=== PATIENT | female | born 1940 | race Caucasian/White ===

== ENCOUNTER → 2017-05-03 | Outpatient (CLI) | payer MEDICARE ==
[~2017-05-03] MED LIST: ASPIRIN EC81 MG PO; ATENOLOL25 MG PO; ATENOLOL50 MG PO; COUMADIN5 MG PO; LEVOTHYROXINE100 MC1; LEVOTHYROXINE100 MCG PO; MECLIZINE HCL12.5 MG PO; PANTOPRAZOLE SO40 MG PO; PRAVASTATIN SOD20 MG PO; WARFARIN SODIUM4 MG PO
--- NOTE | 2017-05-03 15:10 | Diagnostic Imaging Report ---
PROCEDURE: X-RAY CHEST, TWO VIEWS COMPARISON: Chest x-ray 09/30/15. INDICATIONS: COUGH FINDINGS: LUNGS: Stable flattening of the diaphragms. There is no evidence of mass or infiltrate. The pulmonary veins are mildly prominent. PLEURA: No effusions or pneumothorax. HEART \T\ MEDIASTINUM: Stable cardiomegaly and loop recorder. No hilar lymphadenopathy. Aortic ectasia is stable. BONES \T\ SOFT TISSUES: No focal osseous lesions. Soft tissues are unremarkable. CONCLUSION: Stable cardiomegaly and pulmonary venous hypertension. Stable pulmonary hyperinflation suggestive of small airways disease. No acute cardiopulmonary process. Dictated by: Izzy Muller M.D. on 05/03/2017 at 15:18 Electronically approved by: Izzy Muller M.D. on 05/03/2017 at 15:18
== END ==
LOC: RAD 14:18
PROVIDERS: ATTEND Family Medicine
DX: R05 Cough (principal)
CPT/HCPCS: 71020

== ENCOUNTER → 2018-07-12 | Outpatient (CLI) | payer MEDICARE ==
--- NOTE | 2018-07-12 12:30 | Diagnostic Imaging Report ---
EXAM: Lumbar spine radiographs-5 views INDICATION: Lumbago with sciatica, left side. COMPARISON: None FINDINGS: BONES: There is mild anterolisthesis of L4 on L5 and mild retrolisthesis of L3 on L4. No acute displaced fractures. Vertebral body heights are preserved. DISCS: There are mild degenerative disc changes, most pronounced in the lower lumbar spine. JOINTS: Moderate facet degenerative changes, most pronounced in the lower lumbar spine. Likely multilevel mild bony neural foraminal stenosis, extending from the L2-L5 levels. OTHER: Atherosclerotic vascular calcifications. IMPRESSION: Mild degenerative disc and moderate facet degenerative changes. Likely multilevel mild bony neural foraminal stenosis, extending from the L2-L5 levels. Signed by: Dr. Ashley Cedillo MD on 07/12/2018 12:27 PM
--- NOTE | 2018-07-12 12:31 | Diagnostic Imaging Report ---
Exam: Left hip radiographs-2 views History: Low back pain with radiation to the left hip. Comparison: None. Findings: No evidence of acute fracture, malalignment, or soft tissue abnormality. There are mild degenerative changes in the left hip. Impression: No acute radiographic abnormality. Mild left hip osteoarthritis. Signed by: Dr. Ashley Cedillo MD on 07/12/2018 12:28 PM
== END ==
LOC: RAD 11:31
PROVIDERS: ATTEND Family Medicine
DX: M54.42 Lumbago with sciatica, left side (principal)
CPT/HCPCS: 72110

== ENCOUNTER → 2019-01-10 | Day surgery (SDC) | payer MEDICARE ==
[~2019-01-10] VITALS: Ht 165.1 cm; Wt 76.7 kg
[~2019-01-10] MED LIST changes: +FENTANYL CITRATE/PF 100MCG/2 ML INJ ONE; +LIDOCAINE HCL 2% LOCAL 20 ML VIAL ONE; +METOPROLOL SUCC50 MG PO; +MIDAZOLAM HCL 2 MG/2 ML VIAL ONE; +MYRBETRIQ25 MG; +SODIUM CHLORIDE 0.9% 500ML 500 ML ONE
--- OUTSIDE RECORDS SUMMARY | 2019-01-10 10:33 | XMS REPORT ---
[facility] Address Unknown Phone Unavailable Care Team Providers Care Senior Planning Manager Name Role Phone SANA CATALAN Unavailable Unavailable Payers Payer Name Policy Type Policy Number Effective Date Expiration Date Problems This patient has no known problems. Allergies, Adverse Reactions, Alerts Allergy Name Allergy Type Status Severity Reaction(s) Onset Date Inactive Date Treating Clinician Comments meperidine HCl DA Active U 2017-11-15 00:00:00 Penicillins DA Active U 2017-11-15 00:00:00 Medications This patient has no known medications. Results Test Description Test Time Test Comments Text Results Atomic Results Result Comments HIP LEFT 2-3 VW (+/- PELVIS) 2018-07-12 12:27:00 [place] [address] Patient Name: JUMANA MORA MR #: [id number] : 1940 Age/Sex: 77/F Req #: [id number] Adm Physician: Ordered by: SANA CATALAN MD Report #: [id number] Location: [facility] Room/Bed: Procedure: [id number] DX/HIP LEFT 2-3 VW (+/- PELVIS) Exam Date: Exam Time: REPORT STATUS: Signed Exam: Left hip radiographs-2 views History: Low back pain with radiation to the left hip. Comparison: None. Findings: No evidence of acute fracture, malalignment, or soft tissue abnormality. There are mild degenerative changes in the left hip. Impression: No acute radiographic abnormality. Mild left hip osteoarthritis. Signed by: Dr. Romina Romo MD on 07/12/2018 12:28 PM Dictated By: ROMINA ROMO MD 1228 Transcribed By: JIM on 07/12/18 1228 COPY TO: SANA CATALAN MD SP LUMBAR, COMPLETE MIN 4VW 2018-07-12 12:23:00 [place] [address] Patient Name: JUMANA MORA MR #: [id number] : 1940 Age/Sex: 77/F Req #: [id number] Adm Physician: Ordered by: SANA CATALAN MD Report #: [id number] Location: [facility] Room/Bed: Procedure: [id number] DX/SP LUMBAR, COMPLETE MIN 4VW Exam Date: 07/12/18 Exam Time: 1145 REPORT STATUS: Signed EXAM: Lumbar spine radiographs-5 views IND ICATION: Lumbago with sciatica, left side. COMPARISON: None FINDINGS: BONES: There is mild anterolisthesis of L4 on L5 and mild retrolisthesis of L3 on L4. No acute displaced fractures. Vertebral body heights are preserved. DISCS: There are mild degenerative disc changes, most pronounced in the lower lumbar spine. JOINTS: Moderate facet degenerative changes, most pronounced in the lower lumbar spine. Likely multilevel mild bony neural foraminal stenosis, extending from the L2-L5 levels. OTHER: Atherosclerotic vascular calcifications. IMPRESSION: Mild degenerative disc and moderate facet degenerative changes. Likely multilevel mild bony neural foraminal stenosis, extending from the L2-L5 levels. Signed by: Dr. Romina Romo MD on 07/12/2018 12:27 PM Dictated By: ROMINA ROMO MD 26 Transcribed By: JIM on 07/12/187 COPY TO: SANA CATALAN MD CHEST 2 VIEWS [place] [address] Patient Name: JUMANA MORA MR #: [id number] : 1940 Age/Sex: 76/F Req #: [id number] Adm Physician: Ordered by: SANA CATALAN MD Report #: [id number] Location: [facility] Room/Bed: Procedure: [id number] DX/CHEST 2 VIEWS Exam Date: 05/03/17 Exam Time: 1445 REPORT STATUS: Signed PROCEDURE: X-RAY CHEST, TWO VIEWS COMPARISON: Chest x-ray 09/30/15. INDICATIONS: COUGH FINDINGS: LUNGS: Stable flattening of the diaphragms. There is no evidence of mass or infiltrate. The pulmonary veins are mildly prominent. PLEURA: No effusions or pneumothorax. HEART T MEDIASTINUM: Stable cardiomegaly and loop recorder. No hilar lymphadenopathy. Aortic ectasia is stable. BONES T SOFT TISSUES: No focal osseous lesions. Soft tissues are unremarkable. CONCLUSION: Stable cardiomegaly and pulmonary venous hypertension. Stable pulmonary hyperinflation suggestive of small airways disease. No acute cardiopulmonary process. Dictated by: Ysabel Muller M.D. on 05/03/2017 at 15:18 Electronically approved by: Ysabel Muller M.D. on 05/03/2017 at 15:18 Dictated By: YSABEL MULLER MD Transcribed By: GLORIA on 05/03/178 COPY TO: SANA CATALAN MD KNEE RIGHT THREE VIEWS [place] [address] Patient Name: JUMANA MORA MR #: [id number] : 1940 Age/Sex: 76/F Req #: [id number] Adm Physician: Ordered by: SANA CATALAN MD Report #: [id number] Location: [facility] Room/Bed: Procedure: [id number] DX/KNEE RIGHT THREE VIEWS Exam Date: 02/28/17 Exam Time: 1020 REPORT STATUS: Signed PROCEDURE: KNEE RIGHT THREE VIEWS COMPARISON: None. INDICATIONS: PATELLER TENDONITIS RIGHT KNEE FINDINGS: There are no fractures, dislocations, lytic or blastic lesions. The bones are well-mineralized. The soft-tissues are unremarkable. CONCLUSION: No acute radiographic abnormality. Dictated by: Hamida Redd M.D. on 02/28/2017 at 11:24 Electronically approved by: Hamida Redd M.D. on 02/28/2017 at 11:24 Dictated By: HAMIDA REDD MD Transcribed By: GLORIA on 02/28/17 1124 COPY TO: SANA CATALAN MD
[2019-01-10 11:00] VITALS: BP 166/74
[2019-01-10 14:53] VITALS: BP 112/51
[2019-01-10 15:00] VITALS: BP 119/53
[2019-01-10 15:15] VITALS: BP 105/58
[2019-01-10 15:30] VITALS: BP 114/62
--- NOTE | 2019-01-10 15:40 | NUR ---
Patient ambulated to restroom with standby assistance and void without difficulty. Assisted patient with getting dressed. IV to right hand removed and dressing placed per protocol. Dressing to right hand is clean,dry, and intact. Dressing to right upper chest is clean,dry, and intact. Patient and patient's provided copies of discharge instructions, medication reconciliation, prescription, and Minocycline handout. 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 Patient discharged with belongings. No distress noted at time of discharge.
--- NOTE | 2019-01-11 17:00 | Operative Report ---
DATE OF PROCEDURE: 01/10/2019 SURGEON: Moody Gonzalez MD INDICATIONS: ILR at end of life. PROCEDURE PERFORMED: Explant of implantable loop recorder. COMPLICATIONS: None. BLOOD LOSS: Minimal. RECOMMENDATIONS: Monitor wound healing. DESCRIPTION OF PROCEDURE: Left anterior chest wall was anesthetized using subcutaneous lidocaine. A skin incision was made. The ILR was identified. Capsule was incised. ILR was explanted. Subcutaneous tissue approximated using 4-0 Vicryl. Skin approximated using Dermabond. The patient discharged home same day. Moody Gonzalez MD KSB/MODL /[id number]
== END | disposition home or self-care (01) ==
LOC: CATH LAB 10:25
PROVIDERS: ATTEND Internal Medicine Interventional Cardiology
DX: Z45.09 Encounter for adjustment and management of other cardiac device (principal); I48.91 Unspecified atrial fibrillation; I25.10 Atherosclerotic heart disease of native coronary artery without angina pectoris; Z79.01 Long term (current) use of anticoagulants; Z79.82 Long term (current) use of aspirin
CPT/HCPCS: 33286; J2001; J2250; J3010; J7040

== ENCOUNTER → 2020-03-23 | Day surgery (SDC) | payer MEDICARE ==
[2020-03-19 11:16] LABS: BASOPHILS % 0.5 % (0.0-1.0); EOSINOPHILS # (AUTO) 0.4 (0.0-0.4); EOSINOPHILS % 5.1 % (0.0-6.0); HEMATOCRIT 42.7 % (34.2-44.1); MEAN CORPUSCULAR HEMOGLOBIN 31.5 pg (28-32); MEAN CORPUSCULAR HGB CONC 32.8 g/dL (31-35); MEAN CORPUSCULAR VOLUME 96.2 fL (81-99); MONOCYTES # (AUTO) 0.5 (0.2-0.8); MONOCYTES % 6.8 % (4.4-11.3); NEUTROPHILS # (AUTO) 4.5 (2.1-6.9); NEUTROPHILS % 60.2 % (38.7-80.0); PLATELET COUNT 209 x10e3/uL (140-360); RED BLOOD COUNT 4.44 x10e6/uL (3.6-5.1); RED CELL DISTRIBUTION WIDTH 12.6 % (11.7-14.4)
[~2020-03-23] MED LIST changes: +HYOSCYAMINE 0.125 MG TAB ONE; -LIDOCAINE HCL 2% LOCAL 20 ML VIAL ONE; +LIDOCAINE HCL 2% LOCAL INJ 5 ML SDV VIAL INJ ONE; -MIDAZOLAM HCL 2 MG/2 ML VIAL ONE; -SODIUM CHLORIDE 0.9% 500ML 500 ML ONE
[2020-03-23 14:40] VITALS: BP 115/89
--- NOTE | 2020-03-23 15:18 | Operative Report ---
DATE OF PROCEDURE: 03/23/2020 SURGEON: Indio Bee MD PROCEDURES: EGD with biopsies and colonoscopy with polypectomy. ADDITIONAL REFERRING PHYSICIAN: Moody Gonzalez MD. INDICATIONS FOR EGD: History of melena. INDICATIONS FOR COLONOSCOPY: Colorectal cancer screening. MEDICATIONS: The patient was done under MAC, please see anesthesiologist's note. PROCEDURE IN DETAIL: With the patient in the left lateral decubitus position, a flexible fiberoptic Olympus gastroscope was introduced into the esophagus under direct visualization without any difficulty. There was some erythema noted in distal esophagus. There was a moderate-sized sliding hiatal hernia and was traversed with ease. There was some focal nodularity in the hiatal hernia sac and that was biopsied. The scope was then advanced with ease into the stomach. Mucosa overlying the antrum and the body revealed some patchy erythema and [id number] edema, and biopsies were obtained from the antrum of the body. The pylorus was of normal contour and shape, was intubated with ease and the scope was advanced all the way to the second portion of the duodenum. The scope was then withdrawn slowly. Mucosa overlying the proximal second portion and the duodenal bulb appeared to be within normal limits. The scope was then withdrawn back into the stomach and retroflexed, mucosa overlying the fundus and the cardia appeared to be within normal limits. The scope was then straightened out, it was subsequently withdrawn, and the patient tolerated the procedure well. IMPRESSION: 1. Distal esophagitis. 2. Moderate-sized sliding hiatal hernia. 3. Focal nodularity, hiatal hernia sac, biopsied. 4. Gastritis, biopsied, biopsies sent to stain for Helicobacter pylori. PLAN: Follow up histology. Initiate Protonix 40 mg one p.o. q.a.m. before meals. The patient might benefit from a repeat EGD in 2 to 3 months upon treatment to re-evaluate the aforementioned prominent nodularity in the hiatal hernia sac. The patient was then turned around and after adequate lubrication of the anal canal, a flexible fiberoptic Olympus colonoscope was inserted into the rectum with ease and advanced all the way to the cecum. It was then withdrawn slowly. Mucosa overlying the cecum, ascending colon, and transverse colon appeared to be within normal limits. One polyp was hot snared from the proximal descending colon. A single diverticulum was noted in the sigmoid colon. One polyp was cold biopsied from the sigmoid colon. The rectum appeared to be within normal limits. The scope was then retroflexed into the distal rectum and small internal hemorrhoids were noted, none of which was actively bleeding. The scope was then straightened out, it was subsequently withdrawn, and the patient tolerated the procedure well. IMPRESSION: 1. Descending colon polyp, hot snared. 2. Diverticulosis, sigmoid colon, minimal. 3. Sigmoid colon polyp, cold biopsied. 4. Internal hemorrhoids, none actively bleeding. PLAN: Follow up histology. Initiate high-fiber, low-fat diet. Initiate high-fiber supplement. The patient might benefit from a followup colonoscopy in 3 years. Findings do not necessarily explain the patient's melena. We will proceed with small bowel series and if negative and the melena recurs, then the patient will need a capsule endoscopy. MD CÉSAR Butts/JESUSITAL /[id number] cc: MD Trev Jiménez MD
== END | disposition home or self-care (01) ==
LOC: OR 11:50
PROVIDERS: ATTEND Internal Medicine Gastroenterology
DX: K29.50 Unspecified chronic gastritis without bleeding (principal); K63.5 Polyp of colon; K20.90 Esophagitis, unspecified without bleeding; K44.9 Diaphragmatic hernia without obstruction or gangrene; K31.89 Other diseases of stomach and duodenum; K57.30 Diverticulosis of large intestine without perforation or abscess without bleeding; K59.09 Other constipation; K64.8 Other hemorrhoids; E03.9 Hypothyroidism, unspecified; I48.91 Unspecified atrial fibrillation; I25.10 Atherosclerotic heart disease of native coronary artery without angina pectoris; I25.2 Old myocardial infarction; Z88.6 Allergy status to analgesic agent; Z88.0 Allergy status to penicillin; Z01.810 Encounter for preprocedural cardiovascular examination; Z01.812 Encounter for preprocedural laboratory examination; Z20.828 Contact with and (suspected) exposure to other viral communicable diseases; Z79.01 Long term (current) use of anticoagulants; Z98.61 Coronary angioplasty status; Z68.27 Body mass index [BMI] 27.0-27.9, adult
CPT/HCPCS: 36415; 43239; 45380; 45385; 85025; 93005; J2001; J3010; U0002; 45378; 45384

== ENCOUNTER → 2020-04-09 | Outpatient (CLI) | payer MEDICARE ==
[~2020-04-09] MED LIST changes: -FENTANYL CITRATE/PF 100MCG/2 ML INJ ONE; -HYOSCYAMINE 0.125 MG TAB ONE; -LIDOCAINE HCL 2% LOCAL INJ 5 ML SDV VIAL INJ ONE
== END ==
LOC: DX 15:33
PROVIDERS: ATTEND Internal Medicine Gastroenterology
DX: Z01.812 Encounter for preprocedural laboratory examination (principal); Z20.828 Contact with and (suspected) exposure to other viral communicable diseases; K92.1 Melena; K31.89 Other diseases of stomach and duodenum
CPT/HCPCS: U0002

== ENCOUNTER → 2020-06-21 | Day surgery (SDC) | payer MEDICARE ==
[2020-06-17 10:43] LABS: BASOPHILS % 0.4 % (0.0-1.0); EOSINOPHILS # (AUTO) 0.5 (0.0-0.4); EOSINOPHILS % 7.2 % (0.0-6.0); HEMATOCRIT 41.7 % (34.2-44.1); HEMOGLOBIN 13.7 g/dL (12.0-16.0); LYMPHOCYTES # (AUTO) 2.2 (1.0-3.2); LYMPHOCYTES % 30.3 % (18.0-39.1); MEAN CORPUSCULAR HEMOGLOBIN 31.3 pg (28-32); MEAN CORPUSCULAR HGB CONC 32.9 g/dL (31-35); MEAN CORPUSCULAR VOLUME 95.2 fL (81-99); MONOCYTES # (AUTO) 0.6 (0.2-0.8); MONOCYTES % 8.2 % (4.4-11.3); NEUTROPHILS # (AUTO) 3.8 (2.1-6.9); NEUTROPHILS % 53.6 % (38.7-80.0); PLATELET COUNT 206 x10e3/uL (140-360); RED BLOOD COUNT 4.38 x10e6/uL (3.6-5.1); RED CELL DISTRIBUTION WIDTH 12.8 % (11.7-14.4)
[~2020-06-21] MED LIST changes: +LIDOCAINE HCL 2% LOCAL INJ 5 ML SDV VIAL INJ ONE; +PROPOFOL IV EMULSION 10 MG/ML 20 ML VIAL ONE; +SIMETHICONE 40 MG/0.6 ML BTL ONE
[2020-06-21 07:40] LABS: INR 0.98; PARTIAL THROMBOPLASTIN TIME 29.6 seconds (23.8-35.5); PROTHROMBIN TIME 13.6 seconds (11.9-14.5)
[2020-06-21 08:45] VITALS: BP 129/63
== END | disposition home or self-care (01) ==
LOC: OR 06:10
PROVIDERS: ATTEND Internal Medicine Gastroenterology
DX: K20.90 Esophagitis, unspecified without bleeding (principal); K29.70 Gastritis, unspecified, without bleeding; K21.9 Gastro-esophageal reflux disease without esophagitis; K44.9 Diaphragmatic hernia without obstruction or gangrene; K31.89 Other diseases of stomach and duodenum; I10 Essential (primary) hypertension; I25.2 Old myocardial infarction; E78.5 Hyperlipidemia, unspecified; Z01.810 Encounter for preprocedural cardiovascular examination; Z01.812 Encounter for preprocedural laboratory examination; Z20.822 Contact with and (suspected) exposure to COVID-19; Z86.010 Personal history of colon polyps; Z68.27 Body mass index [BMI] 27.0-27.9, adult; Z88.0 Allergy status to penicillin; Z88.8 Allergy status to other drugs, medicaments and biological substances
CPT/HCPCS: 36415 ×2; 43239; 85025; 85610; 85730; 93005; J2001; J2704; U0002

== ENCOUNTER → 2021-06-29 | Outpatient (CLI) | payer MEDICARE ==
[~2021-06-29] MED LIST changes: -LIDOCAINE HCL 2% LOCAL INJ 5 ML SDV VIAL INJ ONE; -PROPOFOL IV EMULSION 10 MG/ML 20 ML VIAL ONE; -SIMETHICONE 40 MG/0.6 ML BTL ONE
== END ==
LOC: RAD 13:23
PROVIDERS: ATTEND Nurse Practitioner Adult Health
DX: L03.116 Cellulitis of left lower limb (principal)
CPT/HCPCS: 93971

== ENCOUNTER → 2021-08-09 | Day surgery (SDC) | payer MEDICARE ==
[2021-08-05 12:17] LABS: BASOPHILS % 0.4 % (0.0-1.0); EOSINOPHILS # (AUTO) 0.2 (0.0-0.4); EOSINOPHILS % 2.5 % (0.0-6.0); HEMATOCRIT 43.3 % (34.2-44.1); HEMOGLOBIN 14.1 g/dL (12.0-16.0); LYMPHOCYTES # (AUTO) 2.1 (1.0-3.2); LYMPHOCYTES % 25.3 % (18.0-39.1); MEAN CORPUSCULAR HEMOGLOBIN 31.9 pg (28-32); MEAN CORPUSCULAR HGB CONC 32.6 g/dL (31-35); MONOCYTES # (AUTO) 0.5 (0.2-0.8); MONOCYTES % 6.5 % (4.4-11.3); NEUTROPHILS # (AUTO) 5.4 (2.1-6.9); NEUTROPHILS % 64.8 % (38.7-80.0); PLATELET COUNT 214 x10e3/uL (140-360); RED BLOOD COUNT 4.42 x10e6/uL (3.6-5.1); RED CELL DISTRIBUTION WIDTH 13.3 % (11.7-14.4)
[2021-08-05 12:44] LABS: ALBUMIN 3.5 g/dL (3.5-5.0); ALBUMIN/GLOBULIN RATIO 0.9 (0.8-2.0); ANION GAP 12.2 mmol/L (8-16); CREATININE, SERUM 1.05 mg/dL (0.57-1.11); POTASSIUM 4.2 mmol/L (3.5-5.1)
[2021-08-09] VITALS (28 sets, daily range): BP systolic 122–187; BP diastolic 50–85
[~2021-08-09] VITALS: Ht 157.5 cm; Wt 77.1 kg
[~2021-08-09] MED LIST changes: +ALPRAZOLAM 0.5 MG TAB ONE; +ASPIRIN 325 MG TAB ONE; +BIVALRIUDIN 250 MG/VIAL VIAL IV ONE; +DIPHENHYDRAMINE HCL 25 MG CAP ONE; +FENTANYL CITRATE/PF 100MCG/2 ML INJ ONE; +HEPARIN SOD (PORCINE) 1000 UNIT/ML 30ML ONE; +HEPARIN SOD/SOD CHLORIDE 2,000 ML ONE; +IOPAMIDOL 370 MG/ML 100 ML INFUS..BTL INJ ONE; +MIDAZOLAM HCL 2 MG/2 ML VIAL ONE; +NITROGLYCERIN/D5W 200 MCG/ML 250 ML ONE; +PRASUGREL 10 MG TAB ONE; +SODIUM CHLORIDE 0.9% 500ML 500 ML ONE; +SODIUM CHLORIDE 0.9% 50ML 50 ML ONE; +VERAPAMIL HCL 2.5 MG/ML 2 ML VIAL ONE
== END | disposition home or self-care (01) ==
LOC: CATH LAB 10:04
PROVIDERS: ATTEND Internal Medicine Interventional Cardiology
DX: I25.118 Atherosclerotic heart disease of native coronary artery with other forms of angina pectoris (principal); R94.39 Abnormal result of other cardiovascular function study; I48.91 Unspecified atrial fibrillation; Z01.812 Encounter for preprocedural laboratory examination; Z20.822 Contact with and (suspected) exposure to COVID-19; Z79.01 Long term (current) use of anticoagulants; Z79.82 Long term (current) use of aspirin; Z79.899 Other long term (current) drug therapy
CPT/HCPCS: 93458; C9600; 36415; 76937; 80053; 83880; 85025; 92928; 99152; 99153; C1769; C1874; C1887; J0583; J1644; J2250; J3010; J7040; Q9967; U0002